=== PATIENT | male | born 1970 | race Caucasian/White ===

== ENCOUNTER → 2018-10-11 | Outpatient (CLI) | payer BC ==
--- NOTE | 2018-10-11 15:42 | PCVCIMAG ---
APPROVED REPORT Study performed: 10/11/2018 14:16:05 EXAM: Comprehensive 2D, Doppler, and color-flow Echocardiogram Patient Location: Echo lab Status: routine BSA: 2.04 HR: 61 bpmBP: 120/84 mmHg Rhythm: Bradycardia Other Information Study Quality: Good Indications Murmur, Abnormal ekg 2D Dimensions IVSd: 8.50 (7-11mm)LVOT Diam: 20.77 (18-24mm) LVDd: 48.85 mm PWd: 9.77 (7-11mm)Ascending Ao: 33.50 (22-36mm) LVDs: 30.82 (25-40mm) Left Atrium: 36.92 (27-40mm) Aortic Root: 28.89 mm LV Single Plane 4CH: 64.66 % LV Single Plane 2CH: 71.44 % Biplane EF: 67.5 % Volumes Left Atrial Volume (Systole) Single Plane 4CH: 47.62 mLSingle Plane 2CH: 46.59 mL LA ESV Index: 23.00 mL/m2 Aortic Valve AoV Peak Lazaro.: 1.25 m/s AO Peak Gr.: 6.25 mmHgLVOT Max P.61 mmHg LVOT Max V: 0.95 m/s TICO Vmax: 2.57 cm2 Mitral Valve E/A Ratio: 1.2 MV Decel. Time: 181.07 ms MV E Max Lazaro.: 1.07 m/s MV A Lazaro.: 0.90 m/s TDI E/Lateral E': 8.23E/Medial E': 11.89 Medial E' Lazaro.: 0.09 m/s Lateral E' Lazaro.: 0.13 m/s Pulmonary Valve PV Peak Gr.: 1.57 mmHg Pulmonary Vein P Vein S: 0.40 m/sP Vein A: 0.34 m/s P Vein D: 0.52 m/sP Vein A Dur.: 93.4 msec P Vein S/D Ratio: 0.77 Tricuspid Valve TR Peak Lazaro.: 2.20 m/s TR Peak Gr.: 19.40 mmHg Left Ventricle The left ventricle is normal size. There is normal LV segmental wall motion. There is normal left ventricular wall thickness. Left ventricular systolic function is normal. The left ventricular ejection fraction is within the normal range. LVEF is 60-65%. Right Ventricle The right ventricle is normal size. The right ventricular systolic function is normal. Atria The left atrium size is normal. The right atrium size is normal. Aortic Valve The aortic valve is normal in structure. No aortic regurgitation is present. There is no aortic valvular stenosis. Mitral Valve Moderate eccentric regurgitation. No evidence of mitral valve stenosis. Bi-leaflet mitral valve prolapse. Tricuspid Valve The tricuspid valve is normal in structure. Trace tricuspid regurgitation. Pulmonary artery pressure is 27mmhg. Pulmonic Valve The pulmonary valve is normal in structure. There is no pulmonic valvular regurgitation. Great Vessels The aortic root is normal in size. IVC is normal in size and collapses >50% with inspiration. Pericardium There is no pericardial effusion. <Conclusion> The left ventricle is normal size. There is normal left ventricular wall thickness. Left ventricular systolic function is normal. The right ventricle is normal size. The left atrium size is normal. The aortic valve is normal in structure. Bi-leaflet mitral valve prolapse. Moderate eccentric regurgitation. Trace tricuspid regurgitation. Pulmonary artery pressure is 27mmhg.
--- NOTE | 2018-10-11 15:43 | PCVCIMAG ---
APPROVED REPORT Patient Location: Echo lab Room #: Stress Nurse: Katarzyna Chua RN Treadmill Stress Test: Diagnosis. Murmur, Abnormal ekg, Bradycardia The patient exercised according to the TRIP for 15 mins:, achieving a work level of Max. Mets; 17.50. The resting heart rate of 55 bpm winston to a maximal heart rate of 171 bpm. This value represents 99% of the maximal, age predicted simon rate. The resting blood pressure of 120/84 mmhg, winston to a maximum blood pressure of 144/70mmHg. The exercise stress test was stopped due to Fatigue. Conclusion 1. Clinical response, nonischemic. 2. Stress ECG response, nonischemic. 3. Exercise capacity, superior.
== END | disposition home or self-care (01) ==
LOC: EDSEX → PCVCIMAG 14:04
PROVIDERS: ATTEND Internal Medicine Cardiovascular Disease
DX: I34.1 Nonrheumatic mitral (valve) prolapse (principal); R11.10 Vomiting, unspecified
CPT/HCPCS: 93017; 93306